=== PATIENT | female | born 1940 | race Caucasian/White ===

== ENCOUNTER 2019-09-25 10:10 | Outpatient (CLI) | payer MEDICARE, SELFPAY ==
--- NOTE | 2019-09-25 10:19 | MM_ITS ---
WS: [id number] BILATERAL DIGITAL SCREENING MAMMOGRAPHY WITH CAD CLINICAL INFORMATION: SCREENING HISTORY: Screening mammogram. No current complaints. COMPARISON: July 12, 2018 TECHNIQUE: Bilateral CC and MLO views. FINDINGS: Scattered fibroglandular densities bilaterally. Lucent centered calcifications. No suspicious focal m ass, asymmetry, calcifications, or architectural distortion. No evidence of malignancy. MM/[place] [id number] IMPRESSION: BI-RADS: 2-Benign FOLLOW UP: 1 Year Follow-up Recommend return to annual screening mammography.
== END 2019-09-25 10:11 | disposition home or self-care (01) ==
LOC: RADSHAW 10:18
PROVIDERS: Family Provider Family Medicine; PCP Family Medicine; Visit Provider Family Medicine
DX: Z12.31 Encounter for screening mammogram for malignant neoplasm of breast (principal)
CPT/HCPCS: 77067

== ENCOUNTER 2020-02-07 10:24 | Outpatient (CLI) | payer MEDICARE, SELFPAY ==
--- NOTE | 2020-02-07 10:46 | XR_ITS ---
WS: [id number] Lumbar spine, 3 views, 02/07/2020 Clinical Data: BACK PAIN, LUMBAR, WITH RADICULOPATHY Comparison: None. Findings: Diffuse osteoporosis is seen. There is degenerative disc narrowing at L4-L5 and L5-S1. There is subluxation of L4 on L5 of 0.5 cm and L5 on S1 of 0.4 cm. No compression fractures are seen. The transverse processes and SI joints are normal. XR/XR lumbar spine 2-3V* [id number] Impression: 1. Osteoporosis. 2. Degenerative disc narrowing at L4-L5 and L5-S1. 3. Subluxation of 0.5 cm of L4 on L5 and 0.4 cm of L5 on S1.
--- NOTE | 2020-02-07 10:46 | XR_ITS ---
WS: [id number] Sacroiliac joints, 3 views, 02/07/2020 Clinical Data: BACK PAIN, LUMBAR WITH RADICULOPATHY Comparison: None. Findings: The SI joints are normal in width. No erosion, sclerosis or destruction is seen. There are no fractur es or dislocations. The adjacent visualized pelvis and hips are unremarkable. XR/XR sacroiliac jts m 3V [id number] Impression: Negative SI joints.
== END 2020-02-07 10:25 | disposition home or self-care (01) ==
LOC: RADWPI 10:28
PROVIDERS: Family Provider Family Medicine; PCP Family Medicine; Visit Provider Family Medicine
DX: M54.16 Radiculopathy, lumbar region (principal); M81.0 Age-related osteoporosis without current pathological fracture
CPT/HCPCS: 72100; 72202

== ENCOUNTER 2020-03-13 15:17 | Outpatient (CLI) | payer MEDICARE, SELFPAY ==
--- NOTE | 2020-03-13 15:24 | XR_ITS ---
WS: [id number] EXAM: XR DEXA axial skeleton* [id number] DATE OF EXAMINATION: 03/13/2020, 1536 hours COMPARISON: None. HISTORY: 79 years year old female. Screening for osteoporosis. Postmenopausal. FINDINGS: Bone density of L1 through L4 is estimated at 0.816 g/cm sq: T-score of minus 3.. This falls in the range of osteoporosis. Bilateral proximal femur regions have bone mineral density estimated at 0.590 and 0.604 g/cm sq, righ t and left respect week, correlating with a T-score of -3.3 and -3.2. This falls in the range of oste oporosis. 10-year fracture risk for major osteoporotic fracture is 27.1%. XR/XR DEXA axial skeleton* [id number] IMPRESSION: Estimated bone density falls in the range of osteoporosis within both proximal femur regions and lumbar spine region
== END 2020-03-13 15:18 | disposition home or self-care (01) ==
LOC: RADWPI 15:22
PROVIDERS: Family Provider Family Medicine; PCP Family Medicine; Visit Provider Family Medicine
DX: M81.0 Age-related osteoporosis without current pathological fracture (principal); M54.16 Radiculopathy, lumbar region; Z78.0 Asymptomatic menopausal state
CPT/HCPCS: 77080

== ENCOUNTER → 2020-05-04 08:55 | Outpatient (BNVA) | payer MEDICARE, SELFPAY | PROVIDERS: Family Provider Family Medicine; PCP Family Medicine; Visit Provider Family Medicine | DX: Z11.59 Encounter for screening for other viral diseases (principal) | CPT/HCPCS: 87635 ==

== ENCOUNTER 2020-11-26 16:58 | Outpatient (CLI) | payer MEDICARE, SELFPAY ==
--- NOTE | 2020-11-26 17:12 | XR_ITS ---
WS: [id number] Chest 2 views, 11/26/2020 Clinical Data: COUGH Comparison: None. Findings: No nodules, masses or effusions are seen. The heart is normal. The pulmonary vascularity is not increased. No pneumonia or pneumothorax is seen. The aortic arch and descending aorta are tortuo us. XR/XR chest 2V* [id number] Impression: Atherosclerosis.
== END 2020-11-26 16:59 | disposition home or self-care (01) ==
PROVIDERS: PCP Family Medicine; Visit Provider Family Medicine
DX: R05 Cough (principal); I70.90 Unspecified atherosclerosis
CPT/HCPCS: 71046

== ENCOUNTER 2021-01-13 09:52 | Outpatient (CLI) | payer MEDICARE, SELFPAY ==
--- NOTE | 2021-01-13 09:56 | MM_ITS ---
WS: [id number] ABDOMEN Supine view of the abdomen CLINICAL INFORMATION: SCREENING COMPARISON: BILATERAL DIGITAL SCREENING MAMMOGRAPHY WITH CAD CLINICAL INFORMATION: SCREENING HISTORY: Screening mammogram. No current complaints. COMPARISON: September 25, 2019 TECHNIQUE: Bilateral CC and MLO views. FINDINGS: Scattered fibroglandular densities bilaterally. Punctate calcifications right breast. No suspicious f ocal mass, asymmetry, calcifications, or architectural distortion. No evidence of malignancy. MM/[place] [id number] IMPRESSION: BI-RADS: 2-Benign FOLLOW UP: 1 Year Follow-up Recommend return to annual screening mammography.
== END 2021-01-13 09:53 | disposition home or self-care (01) ==
LOC: RADSHAW 09:55
PROVIDERS: PCP Family Medicine; Visit Provider Family Medicine
DX: Z12.31 Encounter for screening mammogram for malignant neoplasm of breast (principal)
CPT/HCPCS: 77067

== ENCOUNTER 2021-02-22 11:44 | Outpatient (CLI) | payer MEDICARE, SELFPAY ==
--- NOTE | 2021-02-22 11:53 | XR_ITS ---
WS: [id number] Right hip, AP and frog leg views, 02/22/2021 Clinical Data: R HIP PAIN Comparison: None. Findings: No fractures or dislocations are seen. The right hip joint shows no fracture. The soft tissues are no t remarkable. The adjacent pelvis is normal. There is a small spur of the lateral acetabulum. There is minimal irregularity of the femoral head. N o erosion, sclerosis, narrowing or cyst formation of the right hip is seen. XR/XR hip RT 2-3V wo/w pel* [id number] Impression: Moderate osteoarthritis of the right hip. Tonnis classification: grade 2: small cysts in femoral head/acetabulum or moder ate joint space narrowing or moderate loss of head sphericity
== END 2021-02-22 11:45 | disposition home or self-care (01) ==
PROVIDERS: PCP Family Medicine; Visit Provider Family Medicine
DX: M16.11 Unilateral primary osteoarthritis, right hip (principal)
CPT/HCPCS: 73502

== ENCOUNTER → 2021-04-26 09:36 | Day surgery (SDC) | payer MEDICARE, SELFPAY | PROVIDERS: PCP Family Medicine; Visit Provider Orthopaedic Surgery | DX: Z01.818 Encounter for other preprocedural examination (principal); M16.11 Unilateral primary osteoarthritis, right hip | CPT/HCPCS: 93005 ==

== ENCOUNTER → 2021-05-04 15:38 | Outpatient (BNVA) | payer MEDICARE, SELFPAY | PROVIDERS: PCP Family Medicine; Visit Provider Orthopaedic Surgery | DX: Z20.822 Contact with and (suspected) exposure to COVID-19 (principal); Z01.812 Encounter for preprocedural laboratory examination | CPT/HCPCS: 87635 ==

== ENCOUNTER 2021-05-10 15:14 | Observation (INO) | payer MEDICARE, SELFPAY ==
[2021-04-26 09:31] VITALS: BMI 22.1
--- NOTE | 2021-04-26 09:36 | ECG_ITS ---
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1940 Requested By: Chris Carpenter Order Number: [id number] Radha MD: MARYLU LOPEZ Measurements Intervals [place] Rate: 55 P: 54 MO: 173 QRS: -36 QRSD: 97 T: 4 QT: 391 QTc: 375 Interpretive Statements SINUS BRADYCARDIA LEFT AXIS DEVIATION [QRS AXIS < -30] MODERATE VOLTAGE CRITERIA FOR LVH, CONSIDER NORMAL VARIANT [MEETS CRITERIA IN ONE OF: R(aVL), S(V1), R(V5), R(V5/V6)+S(V1)] POSSIBLE SEPTAL MYOCARDIAL INFARCTION , OF INDETERMINATE AGE [30 ms Q WAVE IN V1/V2] No previous ECG available for comparison Electronically Signed On 04-26-2021 20:23:22 CDT by MARYLU LOPEZ https://[employer] [facility] [employer].Mobile Event GuideShanghai Media Groupmercy health [id number]
--- NOTE | 2021-04-26 18:42 | ANES.PREANE2 ---
Pre-Anesthetic Assessment Pre-Anesthetic Assessment: Height/Weight: Height 1.6 m Weight 56.699 kg Proposed Procedure: Operation Date: 05/10/21 12:15 Proposed Procedures p Total Hip Arthroplasty 85935 M16.11(Right) - Barron Monson MD Was Beta Kelly taken within 24 hours: Yes Was Clonidine taken within 24 hours: N/A Social: Social History: No alcohol and No tobacco Exam: Pre-Anes Outpt Exam: alert, oriented x 3, clear to auscultation bilaterally and regular rate & rhythm Airway: Submandibular: WNL Cervical ROM: WNL MP: 2 Dentition: Chipped Metabolic: Metabolic: Thyroid Musc/skel: Musc/skel: OA/DJD Neuropsych: Comments: Tremor Anesthetic Plan: ASA status: 2 Anesthesia: Regional (specify below) (SAB) Risk of > 500 ml blood loss (7ml/kg in children): No PFSH Anesthesia PFSH: Social History Smoking and tobacco status: never smoked Data Anesthesia Cardiac Studies: No Data to Display
[2021-05-10] VITALS (15 sets, daily range): BP systolic 97–156; BP diastolic 47–66; PULSE 39–57; RESP 15–19; TEMP 36.1–36.8; O2SAT 90–100
--- NOTE | 2021-05-10 11:52 | P.HP_ITS ---
Same Day Surgery H&P Indication for Procedure/HPI DATE OF PROCEDURE: May 10, 2021 CHIEF COMPLAINT/INDICATIONFOR SURGICAL PROCEDURE: Osteoarthritis right hip with severe functional limitations, here for right total hip Jad PREOP DIAGNOSIS: Osteoarthritis right hip PLANNED PROCEDRUE: Operation Date: 05/10/21 12:20 Proposed Procedures p Total Hip Arthroplasty 48856 M16.11(Right) - Barron Monson MD 80-year-old female with osteoarthritis of the right hip. Describes pain up to a 9/10 in intensity at times is unbearable and makes it impossible for her to ambulate even short distances. She is here for right total hip arthroplasty Medications/Allergies* Home Medications Medication Instructions Recorded Confirmed Type nadolol 20 mg tablet 20 mg PO DAILY 03/03/21 05/10/21 History levothyroxine 50 mcg PO DAILY 04/26/21 05/10/21 History Allergies/Adverse Reactions Allergy/AdvReac Type Severity Reaction Status Date / Time mupirocin Allergy rash Verified 05/06/21 09:11 Pertinent History/Comorbid Conditions* Social History Smoking and tobacco status: never smoked Pertinent Exam Findings alert, oriented x 3, clear to auscultation bilaterally, regular rate & rhythm and operative site marked Recommendations Surgery/Procedure today Coding Level of Care Code Acute [employer] for Aisha Hernandez
[2021-05-10] MEDS: acetaminophen 500 mg Tablet 1000 MG PO ×2 (12:07→21:25)
[2021-05-10] MEDS: CELEcoxib 100 mg Capsule 400 MG PO (12:08)
[2021-05-10] MEDS: oxyCODONE 20 mg ER (12 HR) Tablet PO (12:08)
[2021-05-10] MEDS: gabapentin 300 mg Capsule PO ×2 (12:08→18:18)
[2021-05-10] MEDS: sodium chloride 0.9% 1,000 ML 30 ML IV (12:09)
--- NOTE | 2021-05-10 13:02 | P.ANESUD_ITS ---
Pre-Anesthetic Update Pre-Anesthetic Assessment: Date of Surgery/Procedure: 05/10/21 Preop Susana gnosis: Osteoarthritis right hip Proposed Procedure: Operation Date: 05/10/21 12:20 Proposed Procedures p Total Hip Arthroplasty 93538 M16.11(Right) - Barron Monson MD Any changes to Pre-Anesthetic Assessment?: No Last Intake: Intake Last Liquid Date 05/09/21 Last Liquid Time 20:00 Last Solid Date 05/09/21 Last Solid Time 19:00 Vitals: Temperature 97.4 F L 05/10/21 11:09 Temperature Source Temporal Artery S can 05/10/21 11:09 Pulse Rate 55 L 05/10/21 11:09 Pulse Rhythm 05/10/21 11:12 Pulse Strength 3+ Normal 05/10/21 11:12 Respiratory Rate 16 05/10/21 11:09 Blood Pressure 156/66 05/10/21 11:09 Blood Pressure Dary n 96 05/10/21 11:09 Pulse Oximetry 99 05/10/21 11:09 Oxygen Delivery Me thod 05/10/21 11:12 Exam: Pre-Anes Outpt Exam: alert, oriented x 3, clear to auscultation bilaterally and regular rate & rhythm Cardiac Studies: No Data to Display
[2021-05-10] MEDS: tranexamic acid 1,000 mg/10mL SDV 1000 MG IRRIGATION (13:18)
--- NOTE | 2021-05-10 14:28 | XRR_ITS ---
PROCEDURE INFORMATION: Exam: XR Pelvis Exam date and time: 05/10/2021 2:28 PM Age: 80 years old Clinical indication: Device placement; Other: Total hip arthroplasty; Prior surgery; Surgery date: Post-operative (0-2 days); Additional info: Total hip arthroplasty, low ap pelvis TECHNIQUE: Imaging protocol: XR pelvis. Views: 1 or 2 view. COMPARISON: CR XR hip RT 2-3V wo/w pel* [id number] 02/22/2021 12:01 PM FINDINGS: Bones/joints: Right hip prosthesis appears intact. No evidence of acute fracture. Soft tissues: Soft tissue gas on the right following surgery. XR/XR pelvis 1-2V* [id number] IMPRESSION: Expected postsurgical changes of recent right hip arthroplasty. Radiation Dose CTDIVOL = (mGy): DLP = (mGy-cm)
--- NOTE | 2021-05-10 14:32 | PM.OP ---
Operative Report Date of procedure: May 10, 2021 Pre-op Diagnosis: Osteoarthritis right hip Post-op diagnosis: same Post-op Findings: Same Procedure Done: Right total hip arthroplasty Pathology: none sent Surgeon: Barron Monson Anesthesia: Nerve Block (Spinal) Estimated blood loss (mL): 100 Findings: The patient Condition: stable Disposition: PACU Procedure: The patient was taken to the operating room and anesthesia provided by the anesthesia service. The patient was placed in the lateral position on a beanbag. A timeout was performed. The patient was draped in the usual fashion. A 15 cm long incision was made beginning just proximal to the greater trochanter and extending posteriorly to a point just distal to the trochanter on the posterior border of the trochanter. Dissection was carried down with electrocautery through the subcutaneous fat to the fascia paulo which was divided proximally and distally with curved scissors. The anterior two thirds of the gluteus medius and minimus were elevated off the hip with electrocautery. The capsule was divided in a H-like fashion. The hip was dislocated and a neck cut made just above the level of the lesser trochanter. Exposure of the acetabulum was facilitated with the acetabular retractors. Remnants of labrum and peripheral osteophytes were removed with electrocautery and a rongeur. A reamer 2 mm under the size the femoral head was utilized to ream medially to the base of the palm and are. Reaming was then increased in 1 mm intervals until a healthy rim a trabecular bone was encountered. A final Trident 2 acetabular cup 1 mm greater than the final reaming was press-fit into place. The ADM liner was secured. Attention was then focused on the femur. Sequential reaming was done under power until cortical chatter was encountered. Broaching was then accomplished until a stable broach size was obtained. A trial reduction with the head and neck provided excellent stability. The wound was irrigated with saline and antibiotic solution. The final Brandywine SecureFit Max stem was press-fit into place. The femoral head was placed and the hip was reduced. The hip was brought through range of motion and found to be free of impingement and stable. The anterior capsule was reapproximated with 1 Ethibond. The gluteus medius and minimus were repaired through bone with 5 Ethibond and reinforced with 1 Ethibond. The fascial paulo was closed with a running 0 Stratafix suture. Deep pelvic tissues were closed with 2-0 Stratafix and the skin with a running 4-0 l Stratafix. 1) Lucretia 52 mm Trident 2 solid back acetabular shell 2) Size 8 Brandywine 132.5 degree neck angle SecureFit Max stem 3} 28mm standard femoral head 4} MDM metal liner
--- NOTE | 2021-05-10 15:44 | ANE.PACU2 ---
Inpatient post-anesthesia follow up: Airway intact: Yes Vital signs: Temperature 97.1 F Pulse Rate 48 Respiratory Rate 17 Blood Pressure 118/54 Pulse Oximetry 100 Oxygen Delivery Me thod Room Air Oxygen Flow Rate 6 Fraction of Inspir ed Oxygen Hydration adequate: Yes Nausea and vomiting: No Pain level: 2 Mental status: Baseline
[2021-05-10] MEDS: oxyCODONE 5 mg IR Tab/Cap PO (15:59)
[2021-05-10] MEDS: sodium chloride 0.9% 1,000 ML 100 ML IV (15:59)
[2021-05-10] MEDS: CELEcoxib 100 mg Capsule 200 MG PO (15:59)
[2021-05-10] MEDS: sennosides-docusate Tablet 2 TAB PO (18:18)
[2021-05-10] MEDS: morphine 4 mg/mL SDV 1 mL 2 MG IVP (18:50)
--- NOTE | 2021-05-10 20:23 | PC.NURSE ---
i reported low pulse 56 to nurse
[2021-05-11] VITALS (8 sets, daily range): BP systolic 93–126; BP diastolic 50–69; PULSE 53–73; RESP 16–20; TEMP 36.4–36.7; O2SAT 93–96
[2021-05-11] MEDS: oxyCODONE 5 mg IR Tab/Cap PO ×3 (01:14→11:45)
[2021-05-11] MEDS: sodium chloride 0.9% 1,000 ML 100 ML IV (01:15)
--- NOTE | 2021-05-11 01:36 | PC.NURSE ---
i reported low pulse 53 to nurse
[2021-05-11] MEDS: morphine 4 mg/mL SDV 1 mL 2 MG IVP (02:11)
[2021-05-11 03:01] LABS: Hemoglobin 12.1 g/dL (11.5-15.3)
[2021-05-11] MEDS: CELEcoxib 100 mg Capsule 200 MG PO (05:44)
[2021-05-11] MEDS: acetaminophen 500 mg Tablet 1000 MG PO ×2 (05:44→11:44)
[2021-05-11] MEDS: aspirin 325 mg EC Tablet PO (07:52)
[2021-05-11] MEDS: gabapentin 300 mg Capsule PO (07:52)
[2021-05-11] MEDS: levothyroxine 50 mcg Tablet PO (07:52)
[2021-05-11] MEDS: sennosides-docusate Tablet 2 TAB PO (07:52)
--- NOTE | 2021-05-11 10:06 | PC.NURSE ---
Assisted patient back to bed with standby assist and FWW. Patient tolerated well, ice applied back to right hip, abduction pillow placed, siderails up x2, call light in bed beside patient, and bedside table with water within reach. She denies further issues at this time.
--- NOTE | 2021-05-11 13:22 | P.DS_ITS ---
Discharge Providers Date of Admission: 05/10/21 15:14 Date of Discharge: May 11, 2021 Attending Provider at Admission: Barron Monson MD Attending Provider at Discharge: Barron Monson MD Primary Care Provider: Ari Cagle DO Diagnoses at Discharge Discharge Diagnosis (1) Status post right hip replacement: Status: Acute (2) Osteoarthritis of right hip: Status: Resolved Reason for Visit Reason for Visit: total hip Hospital Course Hospital Course The patient tolerated surgery well. They remained hemodynamically stable. They was begun on aspirin and sequential compression dressings for DVT prophylaxis. The patient was mobilized with therapy beginning the day of surgery and by the first postoperative day independent with the walker. As the pain was adequately controlled and they were fully mobile they were discharged home. Physical Exam Narrative: EXAM NARRATIVE: On the day of discharge the hip incision was clean. The incision was free of drainage. They had no particular swelling about the thigh or distal. No distal neurovascular deficits were noted. Discharge Data Data Completed and Pending: Completed Studies During Hospitalization Category Date Time Status XR pelvis 1-2V* 7 2170 Routine Exams 05/10/21 14:28 Completed Labs from last 24 hours 05/11/21 02:13 Hgb 12.1 Vitals: Last Vital Signs Temp 97.6 F 05/11/21 11:00 Pulse 65 05/11/21 11:00 Resp 18 05/11/21 11:45 BP 93/50 05/11/21 11:00 Pulse Ox 95 05/11/21 11:00 Discharge Plan Discharge Patient Disposition: Home Condition: Stable Prescriptions: New oxycodone 5 mg Tablet 5 mg PO Q4H PRN (Reason: Moderate Pain) 7 Days Qty: 20 RF: 0 celecoxib 100 mg Capsule 200 mg PO Q12H 14 Days Qty: 56 RF: 0 gabapentin 300 mg Capsule 300 mg PO BID 7 Days Qty: 14 RF: 0 acetaminophen 500 mg Tablet 1,000 mg PO Q8H 14 Days Qty: 84 RF: 0 aspirin 325 mg Tablet,Delayed Release (Dr/Ec) 325 mg PO DAILY 30 Days Qty: 30 RF: 0 Continued nadolol 20 mg tablet 20 mg PO DAILY RF: 0 levothyroxine 50 mcg tablet 50 mcg PO DAILY RF: 0 Discharge Orders: Discharge Order (Routine); Ordered 05/11/21 Ordered By: Barron Monson Other Ambulatory Orders: DME: Walker (Order) Location: None Selected Ordered By: Barron Monson Referrals: Barron Monson MD [Physician] - 05/14/21 9:00 am Discharge Diet: Advance as tolerated Discharge Activity: Limit activity as instructed Patient Instructions: Opioid Safety Activity Restrictions/Additional Instructions: Okay to shower. No soaking incision in tub Apply FirstIce up to 20 min/hr for pain and swelling Take Celebrex twice a day for the next 15 days for pain , discontinue other anti-inflammatories Take Neurontin twice a day for 7 days. Take Tylenol 500mg (up to 2 tabs) 3 times a day for mild pain Take oxycodone for breakthrough pain. Exercises per physical therapy. May weight-bear as tolerated on total hip arthroplasty Discharge Attestations Time Spent in Discharge Care*: other Quality Metrics Clinical Quality Measures During this hospital stay, did patient experience: None Coding Level of Care Code Acute [facility] [place] note Diagnoses Status post right hip replacement Z96.641 Osteoarthritis of right hip M16.11
== END 2021-05-11 14:28 | disposition home or self-care (01) ==
PROVIDERS: Admitting Provider Orthopaedic Surgery; PCP Family Medicine; Visit Provider Orthopaedic Surgery
PROC: (CPT 27130; principal; 2021-05-10 12:00)
DX: M16.11 Unilateral primary osteoarthritis, right hip (principal)
CPT/HCPCS: 27130; 36415; 72170; 85018; 97110; 97116; 97161; 97165; 97530; C1776; G0378; J0690; J1580; J2270; J2704; J7030

== ENCOUNTER → 2021-06-23 13:35 | Outpatient (BNVA) | payer MEDICARE, SELFPAY | PROVIDERS: PCP Family Medicine; Visit Provider Orthopaedic Surgery | DX: Z47.1 Aftercare following joint replacement surgery (principal); Z96.641 Presence of right artificial hip joint | CPT/HCPCS: 73502 ==

== ENCOUNTER → 2021-09-01 15:40 | Outpatient (BNVA) | payer MEDICARE, SELFPAY | PROVIDERS: PCP Family Medicine; Visit Provider Orthopaedic Surgery | DX: Z96.641 Presence of right artificial hip joint (principal) | CPT/HCPCS: 73502 ==

== ENCOUNTER → 2021-11-16 15:37 | Outpatient (BNVA) | payer MEDICARE, SELFPAY | PROVIDERS: PCP Family Medicine; Visit Provider Orthopaedic Surgery | DX: Z96.641 Presence of right artificial hip joint (principal) | CPT/HCPCS: 73502; 99212 ==

== ENCOUNTER → 2021-12-16 16:22 | Outpatient (BNVA) | payer MEDICARE, SELFPAY | PROVIDERS: PCP Family Medicine; Visit Provider Clinical Nurse Specialist Adult Health | DX: Z00.00 Encounter for general adult medical examination without abnormal findings (principal); E03.9 Hypothyroidism, unspecified | CPT/HCPCS: 80053; 80061; 82607; 84443; 85025 ==

== ENCOUNTER → 2022-09-09 11:11 | Outpatient (BNVA) | payer MEDICARE, SELFPAY | PROVIDERS: PCP Family Medicine; Visit Provider Family Medicine | DX: R53.83 Other fatigue (principal); M16.11 Unilateral primary osteoarthritis, right hip; Z96.641 Presence of right artificial hip joint; M19.90 Unspecified osteoarthritis, unspecified site | CPT/HCPCS: 80053; 82607; 84443; 85025 ==

== ENCOUNTER 2022-10-06 09:44 | Outpatient (CLI) | payer MEDICARE, SELFPAY ==
--- NOTE | 2022-10-06 09:50 | MM_ITS ---
WS: [id number] BILATERAL SCREENING DIGITAL TOMOSYNTHESIS MAMMOGRAM WITH CAD HISTORY: SCREENING COMPARISON: 01/13/2021 and 09/25/2019 Bilateral CC and MLO views with tomosynthesis and synthetic mammography submitted. Computer aided det ection analyzed. Breast composition: There are scattered areas of fibroglandular density. No suspicious masses, microc alcifications or architectural distortion. Benign calcifications in each breast. MM/[place] [id number] IMPRESSION: BI-RADS: 2-Benign FOLLOW UP: 1 Year Follow-up
== END 2022-10-06 09:45 | disposition home or self-care (01) ==
LOC: RAD 09:47
PROVIDERS: PCP Family Medicine; Visit Provider Family Medicine
DX: Z12.31 Encounter for screening mammogram for malignant neoplasm of breast (principal)
CPT/HCPCS: 77063; 77067

== ENCOUNTER → 2023-10-23 11:05 | Outpatient (BNVA) | payer MEDICARE, SELFPAY | PROVIDERS: PCP Clinical Nurse Specialist Adult Health; Visit Provider Clinical Nurse Specialist Adult Health | DX: E03.9 Hypothyroidism, unspecified (principal); R42 Dizziness and giddiness; L98.9 Disorder of the skin and subcutaneous tissue, unspecified | CPT/HCPCS: 80053; 80061; 84443; 85025 ==

== ENCOUNTER → 2024-05-15 11:30 | Outpatient (BNVA) | payer MEDICARE, SELFPAY | PROVIDERS: PCP Clinical Nurse Specialist Adult Health; Visit Provider Nurse Practitioner Family | DX: L57.0 Actinic keratosis (principal); L82.0 Inflamed seborrheic keratosis; D23.39 Other benign neoplasm of skin of other parts of face; L82.1 Other seborrheic keratosis; L81.4 Other melanin hyperpigmentation | CPT/HCPCS: 17000; 17110; 99203 ==

== ENCOUNTER → 2024-09-25 12:49 | Outpatient (BNVA) | payer MEDICARE, SELFPAY | PROVIDERS: PCP Clinical Nurse Specialist Adult Health; Visit Provider Family Medicine | DX: Z00.00 Encounter for general adult medical examination without abnormal findings (principal); Z13.6 Encounter for screening for cardiovascular disorders; E55.9 Vitamin D deficiency, unspecified; E03.9 Hypothyroidism, unspecified; E53.8 Deficiency of other specified B group vitamins; Z51.81 Encounter for therapeutic drug level monitoring | CPT/HCPCS: 80053; 80061; 82306; 82607; 84439; 84443; 85025 ==

== ENCOUNTER → 2025-05-21 10:23 | Outpatient (BNVA) | payer MEDICARE, SELFPAY | PROVIDERS: PCP Clinical Nurse Specialist Adult Health; Visit Provider Nurse Practitioner Family | DX: L98.1 Factitial dermatitis (principal); D23.39 Other benign neoplasm of skin of other parts of face; B35.1 Tinea unguium; L82.1 Other seborrheic keratosis; L81.4 Other melanin hyperpigmentation; Z08 Encounter for follow-up examination after completed treatment for malignant neoplasm; Z85.828 Personal history of other malignant neoplasm of skin; L82.0 Inflamed seborrheic keratosis; R20.8 Other disturbances of skin sensation; L53.8 Other specified erythematous conditions; D48.5 Neoplasm of uncertain behavior of skin; L57.0 Actinic keratosis | CPT/HCPCS: 11102; 17000; 17110; 99213 ==